=== PATIENT | male | born 1995 | race Caucasian/White ===

== ENCOUNTER 2020-09-13 02:21 | Emergency (ER) | payer OTHER ==
[2020-09-13] MEDS ORDERED: Ondansetron PF 4 MG/2 ML Vial ONE (02:48)
[2020-09-13] MEDS ORDERED: Lorazepam 2 MG/ML VIAL ONE (02:48)
== END 2020-09-13 03:48 | disposition home or self-care (01) ==
LOC: ERS 02:21
DX: F43.0 Acute stress reaction (principal); R11.2 Nausea with vomiting, unspecified
CPT/HCPCS: 96374; 96375; J2060; J2405